=== PATIENT | female | born 1985 | race Caucasian/White ===

== ENCOUNTER 2018-06-21 07:29 | Emergency (ER) | payer OTHER ==
[~2018-06-21] VITALS: Ht 162.6 cm; Wt 63.1 kg
[~2018-06-21 07:29] MED LIST: FLUO20CA35 PO; IBUP-1428 PO; KLN/5 PO; OXYC-57 PO
[2018-06-21 07:31] VITALS: PULSE 63; TEMP 36.7; Ht 162.6 cm; Wt 63.1 kg
--- NOTE | 2018-06-21 08:03 | EMERGENCY ROOM VISIT NOTE ---
History Report prepared by Elaine: [place] Under the Supervision of: Dr. Conner Reis D.O. First contact with patient: 07:39 Chief Complaint: HEADACHE Stated Complaint: CONCUSSION, MIGRAINE, NAUSEA, LIGHT/SOUND SENSITIV History of Present Illness The patient is a 33 year old female who presents to the Emergency Room with complaints of a persistent migraine headache that she has been experiencing since a falling episode last week, 5 days ago. The patient states that she was walking dogs at work in the rain when she lost her footing and fell. She fell onto the right side and hit her head off of the ground. She came into the emergency department and had CT and laboratory work performed. She was diagnosed with a concussion. The patient notes that her headache has not improved yet and she is not able to go into work. The patient notes that her headache is worsened with bright lights and noises. She is nauseous and has vomited as well. Source of History: patient Onset: 5 days ago Position: head Quality: ache (headache/migraine/concussion) Timing: other (persistent) Modifying Factors (Worsening): other (light and noise) Associated Symptoms: + nausea, + vomiting Review of Systems See HPI for pertinent positives & negatives. A total of 10 systems reviewed and were otherwise negative. Past Medical & Surgical Medical Problems: (1) No significant active problems (2) No significant active problems (3) No significant active problems Family History Heart disease Hypertension Social History Smoking Status: Current Every Day Smoker Drug Use: none Marital Status: Housing Status: lives with family Occupation Status: employed Current/Historical Medications Scheduled Clonazepam (Klonopin), 0.5 MG PO HS Fluoxetine (Prozac), 60 MG PO QPM Scheduled PRN Ibuprofen (Motrin), 800 MG PO UD PRN for Pain Oxycodone/Acetaminophen 5MG/325MG (Percocet 5MG/325MG), 1-2 TAB PO Q4H PRN for Pain Allergies Coded Allergies: Penicillins (Unverified Allergy, Mild, 06/21/18) Amoxicillin (Unverified Allergy, Unknown, ., 06/21/18) Physical Exam Vital Signs Date Time Temp Pulse Resp B/P (MAP) Pulse Ox O2 Delivery O2 Flow Rate FiO2 06/21/18 07:31 36.7 63 16 123/80 97 Room Air Physical Exam VITAL SIGNS: were reviewed as above. GENERAL:Non-toxic in appearance. SKIN: Warm dry and pink. HEAD: Normocephalic and atraumatic. OROPHARYNX: Is clear and moist NECK: Supple without lymphadenopathy or meningismus. LUNGS: clear. HEART: Regular rate and rhythm. ABDOMEN: Soft and nontender. EXTREMITIES: Warm and well perfused. NEUROLOGICALLY: Awake alert and oriented without focal deficit. Cranial nerves 2 -12 are intact. There is no pronator drift. Cerebellar testing is within normal limits. There is no nystagmus. There is no facial droop. Speech is clear. Vision is grossly normal. MUSCULOSKELETAL: Good muscle tone. No evidence of trauma. Medical Decision & Procedures ED Course 0743: Previous medical records were reviewed. The patient was evaluated in room B4B. A complete history and physical examination was performed. Medical Decision Differential includes: Acute intracranial bleed, trauma, meningitis, encephalitis, increased intracranial pressure, mass or mass effect, facial or dental infection, temporal arteritis, CVA, TIA, acute hypertensive emergency, sinusitis, carbon monoxide exposure. This is a 33-year-old female who presents to the ED with a chief complaint of a headache. She fell about 1 week ago. She had a complete evaluation at that time including CAT scan, blood work and x-rays. The patient is looking for an excuse for work today and yesterday since she did not go. Her vital signs are normal. Her physical exam and neurologic exam were normal. Did not have any obvious injuries or bruising related to her fall. The patient was given excuse for work. She was told to take [id number] medications for her symptoms. She was told to follow-up with her family doctor if necessary and was felt to be stable for discharge. Impression Primary Impression: Headache Scribe Attestation The scribe's documentation has been prepared under my direction and personally reviewed by me in its entirety. I confirm that the note above accurately reflects all work, treatment, procedures, and medical decision making performed by me. Departure Information Referrals Manuelito Miles M.D. (PCP) Patient Instructions My [facility]
[2018-06-21 08:04] VITALS: BP 104/74; O2SAT 98
== END 2018-06-21 08:01 | disposition home or self-care (01) ==
LOC: C.EDB 07:31
DX: S06.0X0A Concussion without loss of consciousness, initial encounter (principal); W01.198A Fall on same level from slipping, tripping and stumbling with subsequent striking against other object, initial encounter; F17.200 Nicotine dependence, unspecified, uncomplicated; Z79.899 Other long term (current) drug therapy; Z88.0 Allergy status to penicillin